=== PATIENT | female | born 2000 | race Caucasian/White ===

== ENCOUNTER 2020-10-20 13:29 | Emergency (ER) | payer MEDICAID, SELFPAY ==
[2020-10-20 13:33] VITALS: BP 125/86; PULSE 90; RESP 18; TEMP 36.6; O2SAT 99
[2020-10-20 15:02] LABS: Add Urine Microscopic? YES; Appearance Urine Clear (Clear); Bacteria Urine Trace /hpf; Bilirubin Urine Negative (Negative); Blood Urine 3+ (Negative); Color Urine Yellow (Yellow); Glucose Urine UA Negative (Negative); Ketones Urine Negative (Negative); Leukocyte Esterase Ur Negative LEU/UL (Negative); Mucus Urine Rare /lpf; Nitrate Urine Negative (Negative); Protein Urine Negative (Negative); Specific Grav Ur 1.014 (1.001-1.035); Squamous Epithelial Cell Urine Moderate /hpf (Few); Urobilinogen Urine Negative mg/dL (<2.0)
--- NOTE | 2020-10-20 15:08 | ED.GENADULT ---
HPI - General Adult General Chief complaint: Vaginal Bleeding Stated complaint: Vag bleed Time Seen by Provider: 10/20/20 13:31 Source: patient Mode of arrival: ambulatory Limitations: no limitations History of Present Illness HPI narrative: Patient presents for evaluation of vaginal bleeding after sexual intercourse over the past 2 weeks. Patient states she has not used any devices or had very rough intercourse which will cause the symptoms. Patient states she is not on her menstrual cycle. She reports that she occasionally have some cramping afterwards but she does not generally have pain or pain with intercourse. She denies any vaginal discharge or concerns for STDs. Patient states she does not have CERTIFIED OPHTHALMIC MEDICAL TECHNICIAN so after noticing bleeding after sexual intercourse yesterday and she presented to the emergency department. Related Data Home Medications Medication Instructions Recorded Confirmed No Home Medications 10/20/20 10/20/20 Allergies Allergy/AdvReac Type Severity Reaction Status Date / Time No Known Allergies Allergy Verified 10/20/20 13:43 Review of Systems Review of Systems: Narrative: CONSTITUTIONAL: Denies fever, chills, or sweats. EYES: Denies visual changes, redness, or discharge. ENT: Denies rhinorrhea, congestion, sore throat, or otalgia. CARDIOVASCULAR: Denies chest pain, palpitations, or edema. RESPIRATORY: Denies cough or dyspnea. GASTROINTESTINAL: Denies abdominal pain, nausea, vomiting, or diarrhea. GENITOURINARY: Reports vaginal bleeding denies dysuria or hematuria. SKIN: Denies rash or itching. MUSCULOSKELETAL: Denies back pain, joint pain, or myalgia. NEUROLOGIC: Denies headache, numbness, dizziness, or weakness. PSYCHIATRIC: Denies anxiety or depression. Exam Narrative: Exam Narrative: GENERAL: Well-appearing, well-nourished, and in no acute distress. HEAD: Normocephalic, atraumatic. EYES: PERRLA and EOMI. HEART: No difficulty breathing. No tachypnea. No audible adventitious breath sounds. : Very small amount of dark blood in the vaginal canal. The cervix has an abrasion from 5 to 7 o'clock position. Very slow, minimal bleeding, cervical os closed. No pain vaginal discharge noted. no lesions or ulcers noted. EXTREMITIES: Normal range of motion. No edema. SKIN: Warm, dry, no rash. NEURO: No focal deficits. Alert and oriented x3. PSYCH: Normal mood and affect. Course Vital Signs Vital signs: Vital Signs Temperature 97.9 F 10/20/20 13:33 Pulse Rate 90 10/20/20 13:33 Respiratory Rate 18 10/20/20 13:33 Blood Pressure 125/86 10/20/20 13:33 Pulse Oximetry 99 10/20/20 13:33 Temperature 97.9 F 10/20/20 13:33 Pulse Rate 90 10/20/20 13:33 Respiratory Rate 18 10/20/20 13:33 Blood Pressure 125/86 10/20/20 13:33 Pulse Oximetry 99 10/20/20 13:33 Medical Decision Making MDM Narrative Medical decision making narrative: Discussed with the patient the importance of following up with CERTIFIED OPHTHALMIC MEDICAL TECHNICIAN for further evaluation of her cervix and to rule out atypical cells causing rebleeding. Patient had very minimal bleeding at this time and is appropriate for discharge. Patient states she does not have any concerns for STDs but she is agreeable to testing. Discussed the need for full STD testing with the CERTIFIED OPHTHALMIC MEDICAL TECHNICIAN as well as to follow-up with CERTIFIED OPHTHALMIC MEDICAL TECHNICIAN for the results of her STD test today and she has decided not to use treated. I am in agreement with this plan but discussed the extreme importance of follow-up.this patient does not have vaginal discharge or pelvic pain upon examination. Vital Signs Vital Signs: Vital Signs Temperature 97.9 F 10/20/20 13:33 Pulse Rate 90 10/20/20 13:33 Respiratory Rate 18 10/20/20 13:33 Blood Pressure 125/86 10/20/20 13:33 Pulse Oximetry 99 10/20/20 13:33 Temperature 97.9 F 10/20/20 13:33 Pulse Rate 90 10/20/20 13:33 Respiratory Rate 18 10/20/20 13:33 Blood Pressure 125/86 10/20/20 13:33 Pulse Oximetry 99 10/20/20
[2020-10-20 15:26] VITALS: BP 124/76; PULSE 98; RESP 18; O2SAT 98
== END 2020-10-20 15:27 | disposition home or self-care (01) ==
PROVIDERS: Physician Assistant; Emergency Provider Emergency Medicine
DX: T14.8XXA Other injury of unspecified body region, initial encounter (principal); W51.XXXA Accidental striking against or bumped into by another person, initial encounter
CPT/HCPCS: 81001; 81025; 87070; 87491; 87591; 87808; 99284

== ENCOUNTER 2021-06-18 11:21 | Emergency (ER) | payer OTHER, SELFPAY ==
[2021-06-18 11:35] VITALS: BP 85/53; PULSE 74; RESP 16; TEMP 36.1; O2SAT 99
--- NOTE | 2021-06-18 11:45 | ED.GENADULT ---
HPI - General Adult General Chief complaint: Dizziness Stated complaint: unspecified Time Seen by Provider: 06/18/21 11:45 Source: patient Mode of arrival: ambulatory Limitations: no limitations History of Present Illness HPI narrative: 20-year-old female patient presents to the [facility] with complaints of a syncopal episode that happened at work today. Patient states she started feeling dizzy and lightheaded and tried to walk to the bathroom next thing she knew she fell forward hitting her head. Patient states that she did start on 2 different antibiotics a couple of days ago for trichomonas. Patient denies any history of syncope before in the past. Patient does arrive bradycardic and hypotensive. Patient continues to feel lightheaded and dizzy. Patient denies at this time. Related Data Home Medications Medication Instructions Recorded Confirmed doxycycline hyclate 100 mg PO BID 06/18/21 06/18/21 metronidazole 500 mg PO BID 06/18/21 06/18/21 Allergies Allergy/AdvReac Type Severity Reaction Status Date / Time No Known Allergies Allergy Verified 06/18/21 11:49 Review of Systems Review of Systems: CONSTITUTIONAL: Denies fever, chills, positive sweats. EYES: Denies visual changes, redness, or discharge. ENT: Denies rhinorrhea, congestion, sore throat, or otalgia. CARDIOVASCULAR: Denies chest pain, palpitations, or edema. RESPIRATORY: Denies cough or dyspnea. GASTROINTESTINAL: Denies abdominal pain, nausea, vomiting, or diarrhea. GENITOURINARY: Denies dysuria or hematuria. SKIN: Denies rash or itching. MUSCULOSKELETAL: Denies back pain, joint pain, or myalgia. NEUROLOGIC: Denies headache, numbness, positive weakness. Positive syncope positive lightheadedness and dizziness PSYCHIATRIC: Denies anxiety or depression. PMFSH Social History Social History Gender identity (if verbalized by the patient): Female Exam Narrative: GENERAL: ill-appearing and pale, well-nourished, and in no acute distress. HEAD: Normocephalic, atraumatic. EYES: PERRLA and EOMI. ENT: Nares clear, no rhinorrhea or epistaxis. Mucous membranes moist. NECK: Supple. No lymphadenopathy CHEST: Clear to auscultation. No respiratory distress. Patient able talk clear complete sentences. HEART: Regular rate and rhythm. No murmur heard. Normal peripheral pulses. ABDOMEN: Soft, nontender, nondistended, normal active bowel sounds. EXTREMITIES: Normal range of motion. No edema. SKIN: Warm, dry, no rash. NEURO: No focal deficits. Alert and oriented x3. Orthostatic vital signs lyin/50 with pulse of 59. Sitting 88/57 pulse of 66. Standing 90/56 with pulse of 97. Course Vital Signs Vital signs: Vital Signs Temperature 36.1 C L 06/18/21 11:35 Pulse Rate 74 06/18/21 11:35 Respiratory Rate 16 06/18/21 11:35 Blood Pressure 85/53 L 06/18/21 11:35 Pulse Oximetry 99 06/18/21 11:35 Temperature 36.1 C L 06/18/21 11:35 Pulse Rate 74 06/18/21 11:35 Respiratory Rate 16 06/18/21 11:35 Blood Pressure 85/53 L 06/18/21 11:35 Pulse Oximetry 99 06/18/21 11:35 Vital signs reviewed 88/50, pulse 59 Sitting 88/56 pulse 66 Standing 90/56 pulse 97 Transfer Transfered to: [place] Transportation: BLS Transfer rationale: Syncope with hypotension Accepting physician: Dr. Petty Transfer comments: Called and spoke with Dr. Petty at [place] [facility] and gave her report on patient that we are sending over the had a syncopal episode today, falling forward and hitting her head and does arrive to the clinic hypotensive with bradycardia with continued lightheadedness symptoms. Sending her over for further evaluation. Medical Decision Making Differential Diagnosis Differential Diagnosis: Differential diagnosis: Syncope, hypotension, bradycardia Vital Signs Vital Signs: Vital Signs Temperature 36.1 C L 06/18/21 11:35 Pulse Rate 74 06/18/21 11:35 Respiratory Rate 16 06/18/21 11:35 Blood Pressure 85/53 L 06/18/21 11
--- NOTE | 2021-06-18 12:35 | ECG_ITS ---
Measurements Intervals [place] Rate: 55 P: 28 [place]: 117 QRS: 73 QRSD: 94 T: 53 QT: 398 QTc: 381 Interpretive Statements SINUS BRADYCARDIA WITH SHORT [place] INTERVAL BORDERLINE ECG Electronically Signed On 06-19-2021 8:09:04 CDT by Rafael Ybarra D.O.
== END 2021-06-18 12:20 | disposition short-term general hospital (02) ==
PROVIDERS: Emergency Provider Nurse Practitioner Family
DX: I95.1 Orthostatic hypotension (principal); R00.1 Bradycardia, unspecified
CPT/HCPCS: 81003; 81025; 93005; 99215; G0463

== ENCOUNTER 2021-06-18 12:40 | Emergency (ER) | payer OTHER, SELFPAY ==
[2021-06-18] VITALS (10 sets, daily range): BP systolic 101–115; BP diastolic 53–73; PULSE 55–85; RESP 16–20; TEMP 36.3; O2SAT 100
--- NOTE | ~2021-06-18 | XR_ITS ---
EXAMINATION: XR chest 2V DATE: 06/18/2021 14:19 INDICATION: Syncope. Head injury. TECHNIQUE: PA and lateral views of the chest were obtained. COMPARISON: None FINDINGS: The lungs are clear with no focal airspace opacities, pulmonary edema, pleural effusion or pneumothor ax. The cardiomediastinal silhouette is normal. Visualized bones and soft tissues are unremarkable. IMPRESSION: 1. Normal chest radiograph. Reviewed, dictated and finalized at location A. IMPRESSION: 1. Normal chest radiograph.
--- NOTE | ~2021-06-18 | CT_ITS ---
EXAMINATION: CT brain wo con DATE: 06/18/2021 14:24 INDICATION: Syncope and head injury TECHNIQUE: Computed tomography (CT) of the head was performed without intravenous contrast. Sagittal and coronal reconstructions were performed. The mA was adjusted according to patient size. Iterative reconstruction technique was employed. The dose-length product was 605.33 mGy-cm. COMPARISON: None FINDINGS: No fracture. No acute intracranial hemorrhage, acute infarction or abnormal extra axial fluid collect ion. Ventricles are normal and symmetric. No mass/mass effect. The orbits, paranasal sinuses and mast oid air cells are normal. IMPRESSION: 1. Normal head CT. Reviewed, dictated and finalized at location A. IMPRESSION: 1. Normal head CT.
--- NOTE | 2021-06-18 12:43 | ECG_ITS ---
Measurements Intervals [place] Rate: 67 P: 38 [place]: 108 QRS: 75 QRSD: 94 T: 56 QT: 388 QTc: 410 Interpretive Statements SINUS RHYTHM WITH SINUS ARRHYTHMIA WITH SHORT [place] INTERVAL BORDERLINE ECG Electronically Signed On 06-19-2021 8:10:57 CDT by Rafael Ybarra D.O.
--- NOTE | 2021-06-18 13:00 | ED.SYNCOPE ---
HPI - Syncope General Chief Complaint: Syncope Stated Complaint: syncopy Time Seen by Provider: 06/18/21 12:51 Source: patient and RN notes reviewed Mode of arrival: ambulatory Limitations: no limitations History of Present Illness HPI narrative: This is a 20 year old female who presents for evaluation of a syncopal episode. Patient states she was at work. 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 She walked to the bathroom because she felt she was going to pass out. She states she fell forward when she was going to sit down. She reports she hit her heard. She denies chest pain, shortness of breath, nausea, vomiting or diarrhea. She was started on metronidazole and doxycycline 2 days ago for a diagnosis of trichomonas. [facility] was evaluated at [facility] for routine well woman exam. She denies abdominal pain or abnormal vaginal discharge . LMP 05/31/21 Related Data Home Medications Medication Instructions Recorded Confirmed No Home Medications 06/18/21 06/18/21 doxycycline hyclate 100 mg PO BID 06/18/21 06/18/21 metronidazole 500 mg PO BID 06/18/21 06/18/21 Allergies Allergy/AdvReac Type Severity Reaction Status Date / Time No Known Allergies Allergy Unverified 06/18/21 12:41 Review of Systems Review of Systems: All systems reviewed & are unremarkable except as noted in HPI and below PMFSH Past Medical History Medical History (Updated 06/18/21 @ 15:53 by Kelsey Petty MD) Syncope Surgical History Surgical History (Updated 06/18/21 @ 13:12 by Kelsey Petty MD) No pertinent past surgical history Social History Social History (Updated 06/18/21 @ 13:12 by Kelsey Petty MD) Smoking status: Never smoker Gender identity (if verbalized by the patient): Female Exam Const: General: no acute distress and alert Orientation/consciousness: patient oriented x3 HENMT: Head: normocephalic and atraumatic Throat: posterior oropharynx normal, tonsils normal and uvula midline Eyes: Pupils: Equal, round and reactive pupils present EOM: EOMs intact bilaterally Resp: Effort & Inspection: normal respiratory effort and no retractions Auscultation: clear to auscultation bilaterally Cardio: Rate: regular rate Rhythm: regular rhythm Heart sounds: no murmurs GI: GI Palp: Yes Soft to palpation, No Tenderness to palpation present (GI) and No Guarding due to palpation present (GI) Auscultation: normal bowel sounds Skin: General skin exam: normal color Rashes: no rashes Neuro: General: patient oriented x3, moves all extremities and CN's II-XI intact bilaterally Psych: Mental Status: mental status grossly normal Affect: normal affect Course Reevaluation(s) Reevaluation #1: PAtient states she feels much better and she is ready for discharge home. Date: 06/18/21 Time: 15:52 Vital Signs Vital signs: Vital Signs Temperature 97.4 F L 06/18/21 12:35 Pulse Rate 65 06/18/21 12:35 Respiratory Rate 17 06/18/21 12:35 Blood Pressure 106/58 L 06/18/21 12:35 Pulse Oximetry 100 06/18/21 12:35 Temperature 97.4 F L 06/18/21 12:35 Pulse Rate 75 06/18/21 16:00 Respiratory Rate 20 06/18/21 16:00 Blood Pressure 109/62 06/18/21 16:00 Pulse Oximetry 100 06/18/21 16:00 MDM - Syncope Lab Data Attestation: I reviewed the patient's lab results. Result diagrams: 06/18/21 12:52 06/18/21 12:51 Labs: Lab Results 06/18/21 06/18/21 Range/Units 12:51 12:52 WBC 8.7 (4.5-10.0) K/mm3 RBC 4.41 (4.2-5.4) M/mm3 Hgb 12.0 (12.0-15.0) g/dL Hct 37.3 (37.0-47.0) % MCV 84.6 (80-100) fl MCH 27.2 (26-34) pg MCHC 32.2 (32-36) g/dl RDW 16.0 H (11.5-14.5) % Plt Count 235 (150-375) k/mm3 MPV 10.6 H (7.4-10.4) fl Immature Gran % (Auto) 0.2 (0-0.5) % Neut % (Auto) 76.3 H (45.5-73.1) % Lymph % (Auto) 15.7 L (18.3-44.2) % [place] % (Auto) 6.2 (2.6-8.5) % Eos % (Au
[2021-06-18] MEDS: LACTATED RINGERS 1,000 ML 999 ML IV CONT (13:07)
--- NOTE | 2021-06-18 13:14 | PC.NURSE ---
Talked to Gretchen in lab at 13:14 to add on MG trop I baseline
[2021-06-18 13:27] LABS: Anion Gap 7 mmol/L (8-16); Blood Urea Nitrogen 12 mg/dL (7-17); Calcium 9.3 mg/dL (8.4-10.2); Carbon Dioxide 27 mmol/L (22-30); Chloride 101 mmol/L (98-107); Estimated CRCL calculation 101 ml/min; Estimated Glomerular Filt Rate > 60; Glucose 87 mg/dL (65-110); Potassium 4.1 mmol/L (3.4-5.0); Sodium 135 mmol/L (137-145)
[2021-06-18 13:35] LABS: Basophils Absolute Auto 0.1 K/mm3 (0.0-0.1); Basophils Percent Auto 0.6 % (0.2-1.2); Eosinophils Absolute Auto 0.1 K/mm3 (0-0.3); Hematocrit 37.3 % (37.0-47.0); Immature Granulocyte Absolute 0.02 K/mm3 (0.00-0.031); Immature Granulocyte Percent A 0.2 % (0-0.5); Lymphocytes Absolute Auto 1.37 K/mm3 (0.9-3.2); Lymphocytes Percent Auto 15.7 % (18.3-44.2); Mean Corpuscular HGB Conc 32.2 g/dl (32-36); Mean Corpuscular Hemoglobin 27.2 pg (26-34); Mean Corpuscular Volume 84.6 fl (80-100); Mean Platelet Volume 10.6 fl (7.4-10.4); Monocytes Absolute Auto 0.5 K/mm3 (0.1-0.6); Monocytes Percent Auto 6.2 % (2.6-8.5); Neutrophils Absolute Auto 6.7 K/mm3 (1.3-6.7); Neutrophils Percent Auto 76.3 % (45.5-73.1); Nucleated Red Blood Cells Absolute Auto 0.1 K/mm3 (0.0-0.012); Nucleated Red Blood Cells Perc 1.4 % (0.0-0.2); Platelet Count Result 235 k/mm3 (150-375); Red Blood Count 4.41 M/mm3 (4.2-5.4); White Blood Count 8.7 K/mm3 (4.5-10.0)
[2021-06-18 13:39] LABS: Troponin I < 0.012 ng/mL (0.000-0.034)
[2021-06-18] MEDS: SODIUM CHLORIDE 0.9% IV 1,000 ML 999 ML IV CONT (14:46)
== END 2021-06-18 16:01 | disposition home or self-care (01) ==
PROVIDERS: Emergency Medicine; Emergency Provider General Practice
DX: R55 Syncope and collapse (principal); R94.31 Abnormal electrocardiogram [ECG] [EKG]
CPT/HCPCS: 36415; 70450; 71046; 80048; 81003; 81025; 83735; 84484; 85025; 93005; 96360; 99284; J7030; J7120

== ENCOUNTER 2021-11-30 11:22 | Observation (INO) | payer OTHER, SELFPAY ==
--- NOTE | 2021-11-30 11:22 | OBADM ---
This patient, Lorraine Yarbrough, admitted to the OB room [facility] for observation. Patient/family oriented to hospital policies and general routines including ID bracelet, bed and alarms, visiting hours, pain management, procedures, bathroom and other care routines, personal items, smoking policy, room service/diet, and visiting hours. Patient/Family are encouraged to report perceived risks to care and to ask questions if they do not understand what they are told or what they should do.
[2021-11-30 12:14] VITALS: BP 113/65; PULSE 85
[2021-11-30 12:15] VITALS: BMI 26.6
[2021-11-30 12:37] LABS: Add Urine Microscopic? NO; Appearance Urine Clear (Clear); Bilirubin Urine Negative (Negative); Blood Urine Negative (Negative); Color Urine Straw (Yellow); Glucose Urine UA Negative (Negative); Ketones Urine Negative (Negative); Leukocyte Esterase Ur Negative LEU/UL (NEGATIVE); Nitrate Urine Negative (Negative); Protein Urine Negative (Negative); Specific Grav Ur 1.009 (1.001-1.035); Urobilinogen Urine Negative mg/dL (<2.0)
[2021-11-30 13:00] VITALS: TEMP 37.1
--- NOTE | 2021-12-16 11:18 | P.PNOB_ITS ---
OB - Triage/Final Diagnosis Visit Information Comments/Additional reasons for admission: I have assessed the risk for this patient, Lorraine Yarbrough, and determined that she would benefit from observation care. Evaluation Laboratory results: Laboratory Tests 11/30/21 12:24 Urine Color Straw Urine Appearance Clear Urine pH 7.0 Ur Specific [place] 1.009 Urine Protein Negative Urine Glucose (UA) Negative Urine Ketones Negative Ur Blood (Man) Negative Urine Nitrate Negative Urine Bilirubin Negative Urine Urobilinogen Negative Ur Leukocyte Esterase Negative Final Diagnosis (1) related bilateral lower abdominal pain, antepartum: Code(s): O26.899 - Other specified related conditions, unspecified trimester; R10.30 - Lower abdominal pain, unspecified Status: Acute
== END 2021-11-30 13:33 | disposition home or self-care (01) ==
PROVIDERS: Admitting Provider Student in an Organized Health Care Education/Training Program; Visit Provider Student in an Organized Health Care Education/Training Program
DX: O26.892 Other specified pregnancy related conditions, second trimester (principal); R10.30 Lower abdominal pain, unspecified; Z3A.19 19 weeks gestation of pregnancy
CPT/HCPCS: 81003; 87086; G0378; G0379

== ENCOUNTER 2022-02-19 16:23 | Emergency (ER) | payer OTHER, SELFPAY ==
--- NOTE | 2022-02-19 16:30 | ED.FEMALEGU ---
HPI - Female Genitourinary General Chief complaint: Abdominal Pain Stated complaint: Throwing Up/Preg Time Seen by Provider: 02/19/22 16:33 Source: patient, RN notes reviewed and old records reviewed Mode of arrival: ambulatory Limitations: no limitations History of Present Illness HPI Narrative: 21-year-old female presents to the [facility] with complaints of nausea, diarrhea, abdominal cramping since waking up this morning. Unable to hold any fluids down. States every time she tries to drink water or Gatorade she vomits. patient states that she is 31 weeks . Denies any vaginal bleeding or discharge G1 Related Data Allergies Allergy/AdvReac Type Severity Reaction Status Date / Time No Known Allergies Allergy Unverified 06/18/21 12:41 Review of Systems Review of Systems: All systems reviewed & are unremarkable except as noted in HPI and below Constitutional: Constitutional: Reports no additional constitutional complaints, Denies chills and Denies fatigue Eyes: Eyes: Reports no additional eye complaints ENT: Reports system reviewed and no additional complaints, except as documented and Denies sore throat Cardiovascular: Cardiovascular: Reports no additional cardiovascular complaints and Denies chest pain Respiratory: Respiratory: Reports no additional respiratory complaints, Denies cough and Denies dyspnea Gastrointestinal: Gastrointestinal: Reports as per HPI, Reports abdominal pain, Reports diarrhea, Reports nausea and Reports vomiting Genitourinary: Genitourinary: Reports pelvic pain Musculoskeletal: Musculoskeletal: Reports no additional musculoskeletal complaints Integumentary/Breasts: Skin/Breast: Reports system reviewed and no additional complaints, except as docu Neurologic: Reports system reviewed and no additional complaints, except as documented Psychiatric: Psychiatric: Reports no additional psychiatric complaints Endocrine: Endocrine: Denies fatigue Allergic/Immunologic: Allergic/Immunologic: Reports no additional allergic/immunologic complaints [facility] Past Medical History Medical History Syncope Surgical History Surgical History No pertinent past surgical history Social History Social History Smoking status: Never smoker Gender identity (if verbalized by the patient): Female Comments At the time of my signature, I reviewed and agree with the nursing past medical, surgical, social, and family history. There is no relevant family history pertinent to the patient complaint. Exam Const: General: alert and ill appearing acutely Nutritional Appearance: well nourished Orientation/consciousness: patient oriented x3 Limitations: no limitations Other: Pale in appearance HENMT: Head: normal to inspection Ears: external ears normal Eyes: Conjunctivae: conjunctivae normal Pupils: Equal, round and reactive pupils present Neck: Neck: normal visual inspection, no lymphadenopathy and no meningeal signs Chest: Chest palpation & inspection: normal inspection of the chest and abnormal inspection of the chest Resp: Effort & Inspection: normal respiratory effort Auscultation: clear to auscultation bilaterally Cardio: Rate: regular rate Rhythm: regular rhythm GI: Other: , heart tones 153 Back/Spine/Pelvis: Back: no CVA tenderness Skin: General skin exam: pallor Rashes: no rashes Wounds: no wounds Neuro: General: patient oriented x3, moves all extremities, no meningeal signs and no focal motor deficits Cranial nerves: Yes Equal, round and reactive pupils present Speech: normal speech Gait exam (Neuro): Normal gait present Extrem: General: normal to inspection Psych: Mental Status: mental status grossly normal Affect: normal affect Attitude: cooperative Thought content: Yes Normal thought content
[2022-02-19 16:40] VITALS: BP 133/77; PULSE 116; RESP 20; TEMP 36.4; O2SAT 100
--- NOTE | 2022-02-19 17:14 | PC.NURSE ---
1647-- [facility] medic came back into our building to inform us that pt didnt want to get into the ambulance with them and she jumped out of the wheelchair and ran to her car, and got into the drivers seat. pt eloped from [facility].
== END 2022-02-19 16:48 | disposition short-term general hospital (02) ==
LOC: EXPCOLL 16:25
PROVIDERS: Emergency Provider Nurse Practitioner
DX: O26.892 Other specified pregnancy related conditions, second trimester (principal); R11.2 Nausea with vomiting, unspecified; R19.7 Diarrhea, unspecified; R10.9 Unspecified abdominal pain; Z3A.31 31 weeks gestation of pregnancy
CPT/HCPCS: 99215; G0463